=== PATIENT | female | born 1940 | race Caucasian/White ===

== ENCOUNTER 2020-12-11 12:55 | Emergency (ER) | payer MEDICARE ==
[~2020-12-11] VITALS: Ht 165.1 cm; Wt 63.5 kg
== END 2020-12-11 14:00 | disposition home or self-care (01) ==
LOC: ER 13:07
DX: M54.50 Low back pain, unspecified (principal); Y93.55 Activity, bike riding; I10 Essential (primary) hypertension
CPT/HCPCS: 99282

== ENCOUNTER 2021-08-06 12:30 | Emergency (ER) | payer MEDICARE ==
[~2021-08-06] VITALS: Ht 165.1 cm; Wt 63.5 kg
[2021-08-06] MEDS ORDERED: PAXLOVID CO-PA1 EACH PO (15:30)
[2021-08-06] MEDS ORDERED: MUCINEX DM ER1 EACH PO (15:30)
== END 2021-08-06 16:21 | disposition home or self-care (01) ==
LOC: ER 12:40
DX: U07.1 COVID-19 (principal); I10 Essential (primary) hypertension; Z87.891 Personal history of nicotine dependence
CPT/HCPCS: 71046; 99283; U0002

== ENCOUNTER 2021-10-16 15:31 | Emergency (ER) | payer MEDICARE ==
[~2021-10-16] VITALS: Ht 165.1 cm; Wt 63.5 kg
[~2021-10-16 15:31] MED LIST: MUCINEX DM ER1 EACH PO; PAXLOVID CO-PA1 EACH PO
[2021-10-16] MEDS ORDERED: KETOROLAC TROMETHAMINE 30 MG/ML VIAL IM STA (15:45)
[2021-10-16] MEDS ORDERED: DEXAMETHASONE 4 MG TAB PO STA (15:45)
[2021-10-16] MEDS ORDERED: LIDOCAINE 4% PATCH TP STA (15:45)
[2021-10-16] MEDS ORDERED: ACETAMINOPHEN 325 MG TAB PO ONE (16:00)
[2021-10-16] MEDS ORDERED: METHOCARBAMOL500 MG PO (16:34)
[2021-10-16] MEDS ORDERED: LIDOCAINE1 EAC1 EXT (16:34)
== END 2021-10-16 16:44 | disposition home or self-care (01) ==
LOC: ER 15:39
DX: M54.50 Low back pain, unspecified (principal); M48.061 Spinal stenosis, lumbar region without neurogenic claudication; I10 Essential (primary) hypertension; E78.5 Hyperlipidemia, unspecified
CPT/HCPCS: 99283; J1885; J8540

== ENCOUNTER 2022-08-11 15:11 | Emergency (ER) | payer MEDICARE ==
[~2022-08-11] VITALS: Ht 167.6 cm; Wt 65.3 kg
[~2022-08-11 15:11] MED LIST changes: +LIDOCAINE1 EAC1 EXT; +METHOCARBAMOL500 MG PO
[2022-08-11] MEDS ORDERED: FLUOXETINE HCL20 M1 PO (16:08)
[2022-08-11] MEDS ORDERED: CRESTOR10 MG PO (16:08)
[2022-08-11] MEDS ORDERED: BUPROPION XL150 MG PO (16:08)
[2022-08-11] MEDS ORDERED: IRBESARTAN75 MG (16:08)
[2022-08-11] MEDS ORDERED: 8 HOUR PAIN RE650 MG (16:08)
[2022-08-11] MEDS ORDERED: KETOROLAC TROMETHAMINE 30 MG/ML VIAL IM STA (16:12)
[2022-08-11] MEDS ORDERED: DEXAMETHASONE PHOS 4MG/ML 5ML MULTIDOSE VIAL IV ONE (16:15)
[2022-08-11] MEDS ORDERED: KETOROLAC TROMETHAMINE 30 MG/ML VIAL ONE (16:24)
[2022-08-11] MEDS ORDERED: ACETAMINOPHEN 325 MG TAB ONE (16:24)
[2022-08-11] MEDS ORDERED: DEXAMETHASONE SOD PHOS INJ 4 MG/ML SDV ONE (16:24)
[2022-08-11] MEDS ORDERED: LIDOCAINE1 EACH TOP (16:25)
[2022-08-11] MEDS ORDERED: ACETAMINOPHEN 325 MG TAB PO ONE (16:30)
[2022-08-11] MEDS ORDERED: METHOCARBAMOL500 MG PO (16:31)
[2022-08-11 16:47] VITALS: O2SAT 94
== END 2022-08-11 16:47 | disposition home or self-care (01) ==
LOC: FSED 15:24
DX: S39.012A Strain of muscle, fascia and tendon of lower back, initial encounter (principal); I10 Essential (primary) hypertension; E78.5 Hyperlipidemia, unspecified; F41.9 Anxiety disorder, unspecified; G89.29 Other chronic pain
CPT/HCPCS: 96372; 99283; J1885; J1100

== ENCOUNTER 2024-01-20 07:22 | Emergency (ER) | payer MEDICARE ==
[~2024-01-20] VITALS: Ht 167.6 cm; Wt 65.3 kg
[~2024-01-20 07:22] MED LIST changes: +8 HOUR PAIN RE650 MG; +BUPROPION XL150 MG PO; +CRESTOR10 MG PO; +FLUOXETINE HCL20 M1 PO; +IRBESARTAN75 MG; +KETOROLAC TROME10 MG PO; +LIDOCAINE1 EACH TOP
[2024-01-20 07:26] VITALS: PULSE 76; RESP 16; TEMP 97.9; O2SAT 100
[2024-01-20] MEDS: HYDROCODONE/APAP 5MG-325MG TAB PO ONE (07:54)
== END 2024-01-20 08:48 | disposition home or self-care (01) ==
LOC: ER 07:29
DX: S40.011A Contusion of right shoulder, initial encounter (principal); W06.XXXA Fall from bed, initial encounter; Y93.84 Activity, sleeping; Y92.89 Other specified places as the place of occurrence of the external cause; I10 Essential (primary) hypertension; E78.5 Hyperlipidemia, unspecified; M54.9 Dorsalgia, unspecified; G89.29 Other chronic pain; F41.9 Anxiety disorder, unspecified; F32.A Depression, unspecified
CPT/HCPCS: 99283

== ENCOUNTER 2024-11-10 22:04 | Emergency (ER) | payer MEDICARE ==
[~2024-11-10] VITALS: Ht 165.1 cm; Wt 61.2 kg
[2024-11-10 22:10] VITALS: TEMP 98
[2024-11-10 23:08] LABS: BASOPHILS % 0.9 % (0.0-1.0); EOSINOPHILS % 1.6 % (0.0-6.0); LYMPHOCYTES % 31.2 % (18.0-39.1); MONOCYTES % 11.0 % (4.4-11.3); NEUTROPHILS % 55.0 % (38.7-80.0); RED CELL DISTRIBUTION WIDTH 13.2 % (11.7-14.4)
[2024-11-10 23:22] LABS: EST GLOMERULAR FILTRATION RATE 84.0 ML/MIN (>=60)
[2024-11-11] VITALS: PULSE 85; RESP 16
[2024-11-11 00:58] VITALS: BP 119/75; PULSE 85; RESP 16; O2SAT 100
== END 2024-11-11 00:45 | disposition home or self-care (01) ==
LOC: ER 22:18
DX: T44.6X1A Poisoning by alpha-adrenoreceptor antagonists, accidental (unintentional), initial encounter (principal); T39.011A Poisoning by aspirin, accidental (unintentional), initial encounter; T46.5X1A Poisoning by other antihypertensive drugs, accidental (unintentional), initial encounter; T50.991A Poisoning by other drugs, medicaments and biological substances, accidental (unintentional), initial encounter; T50.4X1A Poisoning by drugs affecting uric acid metabolism, accidental (unintentional), initial encounter; Y92.019 Unspecified place in single-family (private) house as the place of occurrence of the external cause
CPT/HCPCS: 36415; 80053; 85025; 93005; 99284